=== PATIENT | female | born 1935 | race Caucasian/White ===

== ENCOUNTER 2017-01-03 10:51 | Inpatient (IN) | payer OTHER, MEDICARE ==
[~2017-01-03] VITALS: Ht 167.6 cm; Wt 60.3 kg
[2017-01-03] MEDS ORDERED: ASPIR 8181 M1 PO (15:53)
[2017-01-03] MEDS ORDERED: LIPITOR40 MG PO (15:54)
[2017-01-03] MEDS ORDERED: TYLENOL REGULA325 MG PO (15:55)
[2017-01-03 16:01] VITALS: BP 108/56
[2017-01-03 16:29] LABS: POINT-OF-CARE METER ID UU13113712
[2017-01-03 21:31] LABS: POINT-OF-CARE METER ID UU14174215
[2017-01-04 05:40] LABS: HEMATOCRIT 38.6 % (36.0-46.0); MCH 30.3 PG (29.0-34.0); MCHC 34.5 G/DL (30.0-36.0); MCV 87.9 FL (83-99); MEAN PLAT.VOLUME 12.3 uM^3 (9.5-12.4); PLATELET COUNT 202 K/uL (156-360); RBC DIS.WIDTH-CV 12.1 % (11.8-14.6); RBC DIS.WIDTH-SD 38.9 % (39-53); RED BLOOD COUNT 4.39 M/uL (3.80-5.20); WHITE BLOOD COUNT 10.3 K/uL (4.1-10.2)
[2017-01-04 05:52] LABS: ALKALINE PHOSPHATASE 63 IU/L (3-129); ANION GAP 11 MEQ/L (2-14); CHLORIDE 99 MEQ/L (99-109); GFR ESTIMATE (CALCULATED) 51 mL/min/; GLUCOSE 206 mg/dL (70-99); POTASSIUM 4.2 MEQ/L (3.7-5.4); SAMPLE HEMOLYSIS CHECK 0; SAMPLE ICTERIC CHECK 0; SAMPLE LIPEMIA CHECK 0; SODIUM 136 MEQ/L (136-147); TOTAL BILIRUBIN 0.6 MG/DL (0.0-1.0); UREA NITROGEN (BUN) 21 mg/dL (9-23)
[2017-01-04 06:17] VITALS: BP 126/69
[2017-01-04 07:10] LABS: POINT-OF-CARE METER ID UU13113720
[2017-01-04 11:19] LABS: POINT-OF-CARE METER ID UU13113712
[2017-01-04 15:19] VITALS: BP 116/69
[2017-01-04 16:17] LABS: POINT-OF-CARE METER ID UU13113712
[2017-01-04 21:10] LABS: POINT-OF-CARE METER ID UU13113720
[2017-01-05 05:26] VITALS: BP 106/78
[2017-01-05 07:14] LABS: POINT-OF-CARE METER ID UU13113720; POINT-OF-CARE USER ID AHSSSJB31
[2017-01-05 11:44] LABS: POINT-OF-CARE METER ID UU13113720; POINT-OF-CARE USER ID AHSSSJB31
[2017-01-05 16:49] LABS: POINT-OF-CARE METER ID UU13113720
[2017-01-05 22:35] LABS: POINT-OF-CARE METER ID UU13113720
[2017-01-06 05:35] VITALS: BP 119/62
[2017-01-06 08:02] LABS: POINT-OF-CARE METER ID UU13113720
[2017-01-06 12:07] LABS: POINT-OF-CARE METER ID UU13113720; POINT-OF-CARE USER ID AHSSSJB31
[2017-01-06 15:22] VITALS: BP 96/60
[2017-01-06 16:30] LABS: POINT-OF-CARE METER ID UU13113720
[2017-01-06 21:18] LABS: POINT-OF-CARE METER ID UU13113720
[2017-01-07 06:46] VITALS: BP 102/62
[2017-01-07 07:47] LABS: POINT-OF-CARE METER ID UU13113720
[2017-01-07 11:34] LABS: POINT-OF-CARE METER ID UU13113720
[2017-01-07 15:51] VITALS: BP 140/68
[2017-01-07 16:25] LABS: POINT-OF-CARE METER ID UU14174215
[2017-01-07 21:40] LABS: POINT-OF-CARE METER ID UU13113720
[2017-01-08 05:22] VITALS: BP 119/59
[2017-01-08 07:48] LABS: POINT-OF-CARE METER ID UU13113720
[2017-01-08 11:36] LABS: POINT-OF-CARE METER ID UU13113720
[2017-01-08 15:00] VITALS: BP 163/74
[2017-01-08 16:32] LABS: POINT-OF-CARE METER ID UU13113720
[2017-01-08 21:10] LABS: POINT-OF-CARE METER ID UU13113720
[2017-01-09 05:25] VITALS: BP 121/66
[2017-01-09 07:05] LABS: POINT-OF-CARE METER ID UU13113720; POINT-OF-CARE USER ID AHSSSJB31
[2017-01-09 09:44] LABS: HEMATOCRIT 39.6 % (36.0-46.0); MCH 30.3 PG (29.0-34.0); MCHC 34.8 G/DL (30.0-36.0); MEAN PLAT.VOLUME 12.3 uM^3 (9.5-12.4); PLATELET COUNT 259 K/uL (156-360); RBC DIS.WIDTH-SD 38.5 % (39-53); RED BLOOD COUNT 4.55 M/uL (3.80-5.20)
[2017-01-09 09:52] LABS: ANION GAP 9 MEQ/L (2-14); CHLORIDE 102 MEQ/L (99-109); GFR ESTIMATE (CALCULATED) > 59 mL/min/; GLUCOSE 180 mg/dL (70-99); POTASSIUM 4.1 MEQ/L (3.7-5.4); SAMPLE HEMOLYSIS CHECK 0; SAMPLE ICTERIC CHECK 0; SAMPLE LIPEMIA CHECK 0; SODIUM 137 MEQ/L (136-147); UREA NITROGEN (BUN) 15 mg/dL (9-23)
[2017-01-09 11:19] LABS: POINT-OF-CARE METER ID UU13113720; POINT-OF-CARE USER ID AHSSSJB31
[2017-01-09 15:12] VITALS: BP 114/63
[2017-01-09 16:25] LABS: POINT-OF-CARE METER ID UU13113720
[2017-01-09 19:04] VITALS: BP 166/87
[2017-01-09 21:01] LABS: POINT-OF-CARE METER ID UU13113720
[2017-01-10 06:39] LABS: POINT-OF-CARE METER ID UU14174215; POINT-OF-CARE USER ID ENVGAF
[2017-01-10 09:07] LABS: POINT-OF-CARE METER ID UU13113720
[2017-01-10 09:36] LABS: BASOPHIL COUNT 0.1 K/uL (0-0.1); EOSINOPHIL COUNT 0.2 K/uL (0-0.3); HEMATOCRIT 41.1 % (36.0-46.0); IMMATURE GRANULOCYTE (%) 0.3 % (0.0-0.7); INSTRUMENT ABS NEUTROPHIL CT 3.7 K/uL; MCH 30.1 PG (29.0-34.0); MCHC 34.3 G/DL (30.0-36.0); MCV 87.8 FL (83-99); MEAN PLAT.VOLUME 11.4 uM^3 (9.5-12.4); MONOCYTE (%) 8.9 % (3-12); MONOCYTE COUNT 0.7 K/uL (0-0.8); NEUTROPHIL (%) 48.1 % (45-76); NEUTROPHIL COUNT 3.7 K/uL (1.8-6.4); PLATELET COUNT 260 K/uL (156-360); RBC DIS.WIDTH-CV 12.1 % (11.8-14.6); RBC DIS.WIDTH-SD 38.9 % (39-53); RED BLOOD COUNT 4.68 M/uL (3.80-5.20); WHITE BLOOD COUNT 7.6 K/uL (4.1-10.2)
[2017-01-10 09:47] LABS: CHLORIDE 101 mEq/L (99-109); POTASSIUM 4.2 mEq/L (3.7-5.4); SODIUM 137 mEq/L (136-147)
[2017-01-10 09:48] LABS: GLUCOSE 227 mg/dL (70-99)
[2017-01-10 09:50] LABS: ANION GAP 13 MEQ/L (2-14)
[2017-01-10 09:52] LABS: GFR ESTIMATE (CALCULATED) 51 mL/min/
[2017-01-10 09:53] LABS: UREA NITROGEN (BUN) 15 mg/dL (9-23)
[2017-01-10 09:57] LABS: TROP-I INTERPRETATION NEGATIVE; TROPONIN-I < 0.01 ng/mL (0.0-0.30)
[2017-01-10 11:30] LABS: POINT-OF-CARE METER ID UU13113720
[2017-01-10 14:59] VITALS: BP 120/66
[2017-01-10 16:31] LABS: POINT-OF-CARE METER ID UU13113720
[2017-01-10] MEDS ORDERED: LOVENOX40 MG/0.4 SC (20:34)
[2017-01-10] MEDS ORDERED: DUONEB 2.5-0.5 M3 ML AEROSOL (20:34)
[2017-01-10] MEDS ORDERED: SENNA PLUS TAB1 EACH PO (20:34)
[2017-01-10] MEDS ORDERED: LORAZEPAM0.5 MG PO (20:35)
[2017-01-10] MEDS ORDERED: METFORMIN HCL500 MG PO (20:35)
[2017-01-10] MEDS ORDERED: THERAGRAN1 TABLET PO (20:35)
[2017-01-10] MEDS ORDERED: NOVOLOG PE100 UNITS/ SC (20:35)
[2017-01-10 21:39] LABS: POINT-OF-CARE METER ID UU14174215
[2017-01-11 06:10] VITALS: BP 109/52
[2017-01-11 07:25] LABS: POINT-OF-CARE METER ID UU14174215; POINT-OF-CARE USER ID AHSSSJB31
[2017-01-11 11:40] LABS: POINT-OF-CARE METER ID UU14174215; POINT-OF-CARE USER ID AHSSSJB31
[2017-01-11 13:37] LABS: POINT-OF-CARE METER ID UU13113720
== END 2017-01-11 13:28 | DRG 57 ==
LOC: 3WEST 10:51
PROVIDERS: Internal Medicine; Physical Medicine & Rehabilitation Pain Medicine
PROC: F07M0ZZ Range of Motion and Joint Mobility Treatment of Musculoskeletal System - Whole Body (ICD-10-PCS; principal; 2017-01-03)
DX: I69.354 Hemiplegia and hemiparesis following cerebral infarction affecting left non-dominant side (principal); I69.319 Unspecified symptoms and signs involving cognitive functions following cerebral infarction; F03.90 Unspecified dementia, unspecified severity, without behavioral disturbance, psychotic disturbance, mood disturbance, and anxiety; D72.829 Elevated white blood cell count, unspecified; E86.0 Dehydration; I95.89 Other hypotension; R51 Headache; R45.1 Restlessness and agitation; R55 Syncope and collapse; E11.9 Type 2 diabetes mellitus without complications; I10 Essential (primary) hypertension; E78.5 Hyperlipidemia, unspecified; Z91.81 History of falling
CPT/HCPCS: 71010; 80048; 80053; 82948; 84484; 85025; 85027; 93005; 94640; 96125 GN; 97530 GP; 97532 GN; 99202; J1650; J1815